=== PATIENT | male | born 1985 | race Asian ===

== ENCOUNTER → 2016-12-02 | Outpatient (CLI) | payer OTHER | LOC: COL.RAD 08:30 | DX: B18.1 Chronic viral hepatitis B without delta-agent (principal); R74.8 Abnormal levels of other serum enzymes ==

== ENCOUNTER → 2017-12-23 | Outpatient (CLI) | payer OTHER | LOC: COL.RAD 08:12 | DX: B18.1 Chronic viral hepatitis B without delta-agent (principal); R74.8 Abnormal levels of other serum enzymes ==

== ENCOUNTER → 2018-06-22 | Outpatient (CLI) | payer OTHER | LOC: COL.RAD 07:30 | DX: B18.1 Chronic viral hepatitis B without delta-agent (principal) ==